=== PATIENT | male | born 1940 | race Caucasian/White ===

== ENCOUNTER 2021-10-16 14:14 | Outpatient (CLI) | payer MEDICARE, BC, SELFPAY ==
[2021-10-16 14:31] LABS: Chloride* 102 mmol/L (96-114)
[2021-10-16 14:32] LABS: Albumin* 3.9 g/dL (3.3-5.0)
[2021-10-16 14:33] LABS: Potassium* 4.2 mmol/L (3.6-5.1); Sodium* 138 mmol/L (135-149)
[2021-10-16 14:35] LABS: Alanine Aminotransferase* 20 U/L (4-50); Alkaline Phosphatase* 76 U/L (40-150); Aspartate Amino Transferase* 30 U/L (12-35); Bilirubin Total* 0.6 mg/dL (0.1-1.5); Blood Urea Nitrogen* 23 mg/dL (7-30); Carbon Dioxide* 30 mmol/L (20-32); Cholesterol* 141 mg/dL (90-199); Creatinine* 0.8 mg/dL (0.5-1.5); Estimated Glomerular Filt Rate 89 ml/min; Glucose* 107 mg/dL (60-115); Total Protein* 7.2 g/dL (6.0-8.3); Triglycerides* 65 mg/dL (40-149)
[2021-10-16 14:36] LABS: Calcium* 9.1 mg/dL (8.4-10.6); HDL Cholesterol* 53 mg/dL (>=40); LDL Cholesterol Calculated 75 mg/dL (<100)
[2021-10-16 14:59] LABS: PSA Screen* 5.98 ng/mL (0.10-4.00)
== END 2021-10-16 14:15 | disposition home or self-care (01) ==
PROVIDERS: PCP Family Medicine; Visit Provider Family Medicine
DX: Z00.00 Encounter for general adult medical examination without abnormal findings (principal); I71.4 Abdominal aortic aneurysm, without rupture; C61 Malignant neoplasm of prostate; E78.5 Hyperlipidemia, unspecified; F32.9 Major depressive disorder, single episode, unspecified; G47.00 Insomnia, unspecified
CPT/HCPCS: 80053; 80061; 84153

== ENCOUNTER 2022-01-31 11:38 | Emergency (ER) | payer MEDICARE, BC, SELFPAY ==
[2022-01-31 11:50] VITALS: BP 137/77; PULSE 86; RESP 18; TEMP 36.7; O2SAT 100; O2SAT 97; BMI 25.1
--- NOTE | 2022-01-31 11:50 | CRLHL7_ITS ---
For Patients: As a result of the Century Cures Act, medical imaging exams and procedure reports are released immediately into your electronic medical record. You may view this report before your referring provider. If you have questions, please contact your health care provider. INDICATION: Fall. TECHNIQUE: Head CT without contrast. Coronal and sagittal reformats were generated. COMPARISON: None. FINDINGS: CSF spaces: Within normal limits for age. Brain parenchyma and extra-axial spaces: Nonspecific low attenuation white matter changes consistent with chronic microvascular disease. No sign of mass, hemorrhage, or midline shift. Skull base and calvarium: The visualized paranasal sinuses and mastoid air cells demonstrate no acute or significant findings. The visualized orbits are grossly unremarkable. No skull fractures. IMPRESSION: No acute or significant findings. Please note that all CT scans at this facility use dose modulation, iterative reconstruction, and/or weight-based dosing when appropriate to reduce radiation dose to as low as reasonably achievable. Dictated by Venancio Ureña MD @ 01/31/2022 12:52:14 PM (Electronically Signed)
--- NOTE | 2022-01-31 11:50 | CRLHL7_ITS ---
For Patients: As a result of the Century Cures Act, medical imaging exams and procedure reports are released immediately into your electronic medical record. You may view this report before your referring provider. If you have questions, please contact your health care provider. INDICATION: Fall. TECHNIQUE: CT cervical spine without contrast. Coronal and sagittal reformats were generated. COMPARISON: None. FINDINGS: Vertebrae: The C7 vertebral body is incompletely included in the field of view. No fractures or suspicious bony lesions. Discs and facet joints: Multilevel degenerative changes in the form of disc space narrowing, subchondral sclerosis, and marginal osteophyte formation. 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 Extraspinal findings: Prevertebral soft and visualized airway are unremarkable. IMPRESSION: No acute abnormality in the visualized cervical spine. Multilevel degenerative changes. Please note that all CT scans at this facility use dose modulation, iterative reconstruction, and/or weight-based dosing when appropriate to reduce radiation dose to as low as reasonably achievable. Dictated by Venancio Ureña MD @ 01/31/2022 12:43:17 PM (Electronically Signed)
--- NOTE | 2022-01-31 11:50 | CRLHL7_ITS ---
For Patients: As a result of the Cures Act, medical imaging exams and procedure reports are released immediately into your electronic medical record. You may view this report before your referring provider. If you have questions, please contact your health care provider. INDICATION: Fall. TECHNIQUE: CT maxillofacial without contrast. Coronal and sagittal reformats were generated. COMPARISON: None. FINDINGS: Facial bones: No fractures or bone lesions. Specifically the nasal bones, temporomandibular joints, maxilla and mandible appear intact. Orbits and globes: Unremarkable. Globes are intact. No sign of intraorbital hemorrhage or emphysema. Sinuses: Mild mucosal thickening of the maxillary sinuses. The other sinuses are clear. Soft tissues: Unremarkable. IMPRESSION: Negative facial CT. No sign of acute injury. Please note that all CT scans at this facility use dose modulation, iterative reconstruction, and/or weight-based dosing when appropriate to reduce radiation dose to as low as reasonably achievable. Dictated by Venancio Ureña MD @ 01/31/2022 12:48:07 PM (Electronically Signed)
--- NOTE | 2022-01-31 11:53 | CRLHL7_ITS ---
For Patients: As a result of the Century Cures Act, medical imaging exams and procedure reports are released immediately into your electronic medical record. You may view this report before your referring provider. If you have questions, please contact your health care provider. Indication: Fall Comparison: Two views right knee November 26, 2018 Technique: Standing AP, lateral, and sunrise views of the bilateral knee were obtained Findings: There is no displaced fracture, dislocation, or hardware failure. There are bilateral total knee arthroplasties without obvious periprosthetic fracture. Scattered periarticular ossification is appreciated. There is minimal left suprapatellar joint effusion. 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 Minimal left suprapatellar joint effusion. Dictated by Rogers Iqbal MD @ 01/31/2022 1:03:59 PM (Electronically Signed)
--- NOTE | 2022-01-31 11:53 | CRLHL7_ITS ---
For Patients: As a result of the Century Cures Act, medical imaging exams and procedure reports are released immediately into your electronic medical record. You may view this report before your referring provider. If you have questions, please contact your health care provider. Indication: Fall Comparison: None available. Technique: AP internal, external rotation, and scapular-Y views of the right shoulder were obtained Findings: There is no displaced fracture or dislocation. Degenerative changes of the acromioclavicular and glenohumeral joints are appreciated with marginal osteophyte formation. There is a mildly high-riding appearance of the humeral head. The soft tissues are unremarkable. Impression: Moderate degenerative changes of the shoulder without acute osseous abnormality. Somewhat high-riding appearance of the humeral head which can be seen in the setting of rotator cuff pathology. Dictated by Rogers Iqbal MD @ 01/31/2022 1:05:15 PM (Electronically Signed)
--- NOTE | 2022-01-31 11:54 | CRLHL7_ITS ---
For Patients: As a result of the Century Cures Act, medical imaging exams and procedure reports are released immediately into your electronic medical record. You may view this report before your referring provider. If you have questions, please contact your health care provider. Indication: Trauma. Technique: Left foot 3 views. Comparison: None. Findings: The bones are osteopenic. 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 No evidence fracture or dislocation. No significant soft tissue swelling. Impression: No evidence of fracture. 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 Dictated by Everette Colin MD @ 01/31/2022 1:20:22 PM (Electronically Signed)
[2022-01-31 11:55] VITALS: O2SAT 100
--- NOTE | 2022-01-31 11:55 | CRLHL7_ITS ---
For Patients: As a result of the Cures Act, medical imaging exams and procedure reports are released immediately into your electronic medical record. You may view this report before your referring provider. If you have questions, please contact your health care provider. INDICATION: Weakness. TECHNIQUE: Chest 2 views. COMPARISON: None. FINDINGS: Lungs: Diffuse interstitial opacities, with patchy ground-glass opacities in the right midlung. Pleura: No pleural effusion or pneumothorax. Heart and Mediastinum: The cardiomediastinal silhouette is normal. The vessels are unremarkable. Bones: Unremarkable. IMPRESSION: Interstitial opacities could indicate chronic changes, viral infection, or atypical infection. Dictated by Venancio Ureña MD @ 01/31/2022 1:05:08 PM (Electronically Signed)
[2022-01-31 12:00] VITALS: BP 136/75
[2022-01-31 13:02] LABS: Lactate* 1.6 mmol/L (0.5-1.9)
[2022-01-31 13:13] LABS: Basophils Percent Auto 0.1 % (0.0-3.0); Hematocrit 44.3 % (37.0-53.0); Hemoglobin* 14.4 gm/dL (13.5-17.5); Immature Granulocytes Pct Auto 0.8 %; Lymphocytes Percent Auto 2.3 % (20-44); Mean Corpuscular HGB Conc 33 gm/dL (32-36); Mean Corpuscular Hemoglobin 32 pg (26-34); Mean Corpuscular Volume 99 fL (80-100); Monocytes Percent Auto 5.5 % (0.0-11.0); Neutrophils Percent Auto 91.3 % (42.0-72.0); Platelet Count* 234 K/uL (140-440); Red Blood Count 4.47 m/uL (4.30-5.90)
--- NOTE | 2022-01-31 13:15 | ED.GENADULT ---
HPI - General Adult General Chief complaint: Fall/Minor Trauma Stated complaint: Fell Time Seen by Provider: 01/31/22 11:40 Source: patient Mode of arrival: ambulatory Limitations: no limitations History of Present Illness HPI narrative: 81-year-old male coming in today after being found face down on the ground at home per his . Patient lives at home with his , he states that he has been working on installing carpet yesterday and today. This morning she found him on the ground face down with blood smears over the carpet. He was awake and alert but unable to get up without assistance. She called EMS. He is complaining of pain of his right shoulder. Denies headache. States that he cannot remember how he got to the ground or what he hit on the way down. Unsure if he lost consciousness or not. Does not remember when he fell. Denies a headache. He denies ever having chest pain or shortness of breath. Unclear how long he was down for, is not sure of this either. Per his , he walks independently. Denies any recent illness. He states that he has not been coughing or complaining of anything. He has had normal appetite. No diarrhea. Related Data Previous Rx's Medication Instructions Recorded fluoxetine 40 mg capsule 40 mg PO QDAY #90 caps 10/18/21 simvastatin 40 mg tablet 40 mg PO QPM #90 tabs 10/18/21 trazodone 50 mg tablet 50 mg PO QDAY #90 tabs 10/18/21 Allergies Allergy/AdvReac Type Severity Reaction Status Date / Time penicillin V Allergy Mild told to Verified 01/31/22 11:55 stay away from, unsure why egg Allergy Verified 01/31/22 15:10 Review of Systems Status of ROS: Reports: 10 or more systems reviewed and unremarkable except as noted in History and below [facility] Medical History Osteopenia Surgical History History of abdominal aortic aneurysm (AAA) repair History of bilateral inguinal hernia repair (09/11/11) History of knee surgery History of tonsillectomy (09/11/11) Status post left knee replacement Status post right knee replacement Family History Mother Cancer Dementia Father Cancer Dementia Social History Narrative: former smoker retired from employment Smoking Status: Never smoker Do you use any of these nicotine containing products: None Second hand tobacco smoke exposure: No How often do you have a drink containing alcohol: never How often do you have six or more drinks on one occasion: Never AUDIT-C Alcohol total score: 0 Non-prescribed substance use: denies use Little interest or pleasure in doing things: not at all Feeling down, depressed, or hopeless: not at all service: No Exam Narrative: Exam Narrative: Thin, elderly patient in no acute distress. Alert and oriented x3. Answers questions appropriately. Mood and affect are appropriate. Thoughts are goal oriented and rational. No tangential or magical thinking noted. Patient speaks in full sentences without needing to catch his breath. GCS is 15. HEENT: Normocephalic. Pupils are equally round reactive to light. Extraocular muscles are intact. Conjunctivae are moist without any icterus noted. Moist mucous membranes. Posterior pharynx is normal. Neck is soft . He has no tenderness to palpation over the cervical spine. No tenderness over the lateral or anterior neck. Patient has bruising across both cheeks and bruising over the chin. He has superficial abrasion over the chin- this looks like a rug burn. Cardiovascular: Heart is regular rate and rhythm S1 and S2 are present without any murmurs. Lungs: Clear to auscultation bilaterally no wheezes rhonchi or rales are appreciated. Patient takes deep breaths without any discomfort. No tenderness to palpation over the anterior lateral or posterior chest wall. There is no bruising to the chest wall. Abdomen: Soft and nontender nondistended with normal bowel sounds. No guarding or rebound. No masses or organomegaly appreciated. No bruising to the abdominal wall. Extremities: Bilateral lower extremities are without edema. Normal DP and PT pulses. He does have abrasions over both knees with bruising present. Again these look like rug charles. He has a similar looking abrasion over the left medial foot with ecchymosis and bleeding. he has a large contusion and abrasion over the right shoulder. He has large ecchymosis over the right wrist. Skin: Well perfused . Back: Has normal appearance. There is no ecchymosis, bruising or erythema noted. He has no tenderness to palpation over the cervical, thoracic or lumbar spine. There is no swelling or step-offs noted. Patient is quite weak and needs assistance to even sit up in bed. Const: Vital Signs, click to edit/add: Vital Signs - 24 hr 01/31/22 11:50 01/31/22 11:55 Temperature 98.1 F Pulse Rate [Left P ulse Oximeter] 86 Respiratory Rate 18 Blood Pressure [Le ft Upper Arm] 137/77 Pulse Oximetry 97 100 Oxygen Delivery Me thod Room Air Course Course Hospital Course: IV was established and labs were drawn. Patient white cell count elevated 16.8, 91.3% neutrophils. His CK was Elevated at 8224. Chemistries are unremarkable. LFTs showed an elevated AST of 301 and elevated ALT at 51. CRP was slightly elevated at 4.8. Initial troponin was markedly elevated at 53.4. Urinalysis had 2+ protein, 3+ blood and only 5-10 RBCs on microscop examination. Use negativ for influenza, COVID and RSV. Repeat troponin was drawn and returned also markedly elevated at 66.3. EKG, read by me, showed normal sinus rhythm with prolonged QT and left ventricular hypertrophy. Given an unwitnessed fall we did proceed with head and cervical spine CT both of which were unremarkable for acute findings. We also did a facial CT which was also unremarkable. We did shoulder, knees and foot x-ray given the side of his injuries and discomfort-over unremarkable for acute pathology. Given his markedly elevated troponins we did proceed with a chest CT which had findings concerning for pneumonia. I did consult with Dr. Gilman, cardiology at [facility] who recommended the patient be transferred to hospital with Cardiology capability for further management. We called every hospital in the [facility] area with this capability and [facility] did have a bed available. Dr. Lion accepting for transfer. While here he had received 2 L of normal saline and Levaquin was started for possibility of pneumonia given his findings on CT scan elevated white cell count. Given that the patient prolonged QT on his EKG we did not use azithromycin and given that the patient is allergic to penicillin Zosyn nor amoxicillin was not used either. Vital Signs Vital signs: Initial Vital Signs Temperature 98.1 F 01/31/22 11:50 Temperature Source Temporal Artery Scan 01/31/22 11:50 Pulse Rate 86 01/31/22 11:50 Respiratory Rate 18 01/31/22 11:50 Blood Pressure 137/77 01/31/22 11:50 Blood Pressure Mean 97 01/31/22 11:50 Blood Pressure Position Semi-Fowlers 01/31/22 11:50 Pulse Oximetry 97 01/31/22 11:50 Oxygen Delivery Method 01/31/22 11:50 Vital Signs Temperature 98.1 F 01/31/22 11:50 Pulse Rate 86 01/31/22 11:50 Respiratory Rate 18 01/31/22 11:50 Blood Pressure 137/77 01/31/22 11:50 Pulse Oximetry 97 01/31/22 11:50 Oxygen Delivery Method 01/31/22 11:50 Temperature 98.1 F 01/31/22 11:50 Pulse Rate 86 01/31/22 11:50 Respiratory Rate 18 01/31/22 11:50 Blood Pressure 137/77 01/31/22 11:50 Pulse Oximetry 100 01/31/22 11:55 Oxygen Delivery Method 01/31/22 11:50 Medical Decision Making MDM Narrative Medical decision making narrative: 81-year-old male status post fall and markedly elevated troponins, rhabdomyolysis, probable pneumonia-patient will be transfered for further management. Lab Data Lab results reviewed: Yes I reviewed the patient's lab results Labs: Lab Results 01/31/22 01/31/22 01/31/22 Range/Units 11:55 12:50 12:50 WBC 16.80 H (4.50-11.00) K/uL RBC 4.47 (4.30-5.90) m/uL Hgb 14.4 (13.5-17.5) gm/dL Hct 44.3 (37.0-53.0) % MCV 99 (80-100) fL MCH 32 (26-34) pg MCHC 33 (32-36) gm/dL RDW Coeff of Lora 13.0 (11.5-15.5) % Plt Count 234 (140-440) K/uL Neut % (Auto) 91.3 H (42.0-72.0) % Lymph % (Auto) 2.3 L (20-44) % [place]verse % (Auto) 5.5 (0.0-11.0) % Eos % (Auto) 0.0 (0.0-7.0) % Baso % (Auto) 0.1 (0.0-3.0) % Neut # (Auto) 15.30 H (1.7-7.0) K/uL Lymph # (Auto) 0.40 L (0.90-2.90) K/uL Traverse # (Auto) 0.90 (0.00-0.90) K/UL Eos # (Auto) 0.00 (0.00-0.50) K/uL Baso # (Auto) 0.00 (0.00-0.30) K/uL Abs Immat Gran (auto) 0.10 (0.00-0.30) K/uL Imm/Tot Granulo (auto) 0.8 % ESR 37 H (2-15) mm/hr Sodium (135-149) mmol/L Potassium (3.6-5.1) mmol/L Chloride (96-114) mmol/L Carbon Dioxide (20-32) mmol/L BUN (7-30) mg/dL Creatinine (0.5-1.5) mg/dL Estimated Creat Clear Estimated GFR ml/min Glucose (60-115) mg/dL Lactate (0.5-1.9) mmol/L Calcium (8.4-10.6) mg/dL Total Bilirubin (0.1-1.5) mg/dL Direct Bilirubin (0.0-0.5) mg/dL AST (12-35) U/L ALT (4-50) U/L Alkaline Phosphatase (40-150) U/L Total Creatine Kinase (54-186) U/L Troponin I (0.01-0.04) ng/mL C-Reactive Protein (0.5-1.0) mg/dL Total Protein (6.0-8.3) g/dL Albumin (3.3-5.0) g/dL Urine Color (Yellow) Urine Appearance (Clear) Urine pH (5.0-8.5) Ur Specific [place] (1.000-1.030) Urine Protein (Negative) Urine Glucose (UA) (Negative) Urine Ketones (Negative) Urine Blood (Negative) Urine Nitrite (Negative) Urine Bilirubin (Negative) Urine Urobilinogen (0.2-1.0) Ur Leukocyte Esterase (Negative) Urine RBC (0-2) Urine WBC (0-5) Ur Squamous Epith Cells (None-Few) Urine Bacteria (None) Fine Granular Casts (None) SARS-CoV-2 (PCR) Negative SARS-CoV-2 (Negative) Influenza Type A (PCR) Negative PCR FLU A (Negative) Influenza Type B (PCR) Negative PCR FLU B (Negative) RSV (PCR) Negative PCR RSV (Negative) 01/31/22 01/31/22 01/31/22 Range/Units 12:50 12:50 14:26 WBC (4.50-11.00) K/uL RBC (4.30-5.90) m/uL Hgb (13.5-17.5) gm/dL Hct (37.0-53.0) % MCV (80-100) fL MCH (26-34) pg MCHC (32-36) gm/dL RDW Coeff of Lora (11.5-15.5) % Plt Count (140-440) K/uL Neut % (Auto) (42.0-72.0) % Lymph % (Auto) (20-44) % Traverse % (Auto) (0.0-11.0) % Eos % (Auto) (0.0-7.0) % Baso % (Auto) (0.0-3.0) % Neut # (Auto) (1.7-7.0) K/uL Lymph # (Auto) (0.90-2.90) K/uL Traverse # (Auto) (0.00-0.90) K/UL Eos # (Auto) (0.00-0.50) K/uL Baso # (Auto) (0.00-0.30) K/uL Abs Immat Gran (auto) (0.00-0.30) K/uL Imm/Tot Granulo (auto) % ESR (2-15) mm/hr Sodium 141 (135-149) mmol/L Potassium 4.2 (3.6-5.1) mmol/L Chloride 107 (96-114) mmol/L Carbon Dioxide 27 (20-32) mmol/L BUN 25 (7-30) mg/dL Creatinine 0.8 (0.5-1.5) mg/dL Estimated Creat Clear 66.58 Estimated GFR 89 ml/min Glucose 113 (60-115) mg/dL Lactate 1.6 (0.5-1.9) mmol/L Calcium 8.8 (8.4-10.6) mg/dL Total Bilirubin 1.0 (0.1-1.5) mg/dL Direct Bilirubin 0.2 (0.0-0.5) mg/dL AST 301 H (12-35) U/L ALT 51 H (4-50) U/L Alkaline Phosphatase 73 (40-150) U/L Total Creatine Kinase 8224 H (54-186) U/L Troponin I 53.40 H* 66.30 H* (0.01-0.04) ng/mL C-Reactive Protein 4.8 H (0.5-1.0) mg/dL Total Protein 7.6 (6.0-8.3) g/dL Albumin 4.1 (3.3-5.0) g/dL Urine Color (Yellow) Urine Appearance (Clear) Urine pH (5.0-8.5) Ur Specific [place] (1.000-1.030) Urine Protein (Negative) Urine Glucose (UA) (Negative) Urine Ketones (Negative) Urine Blood (Negative) Urine Nitrite (Negative) Urine Bilirubin (Negative) Urine Urobilinogen (0.2-1.0) Ur Leukocyte Esterase (Negative) Urine RBC (0-2) Urine WBC (0-5) Ur Squamous Epith Cells (None-Few) Urine Bacteria (None) Fine Granular Casts (None) SARS-CoV-2 (PCR) (Negative) Influenza Type A (PCR) (Negative) Influenza Type B (PCR) (Negative) RSV (PCR) (Negative) 01/31/22 Range/Units 14:28 WBC (4.50-11.00) K/uL RBC (4.30-5.90) m/uL Hgb (13.5-17.5) gm/dL Hct (37.0-53.0) % MCV (80-100) fL MCH (26-34) pg MCHC (32-36) gm/dL RDW Coeff of Lora (11.5-15.5) % Plt Count (140-440) K/uL Neut % (Auto) (42.0-72.0) % Lymph % (Auto) (20-44) % [place]verse % (Auto) (0.0-11.0) % Eos % (Auto) (0.0-7.0) % Baso % (Auto) (0.0-3.0) % Neut # (Auto) (1.7-7.0) K/uL Lymph # (Auto) (0.90-2.90) K/uL [place] # (Auto) (0.00-0.90) K/UL Eos # (Auto) (0.00-0.50) K/uL Baso # (Auto) (0.00-0.30) K/uL Abs Immat Gran (auto) (0.00-0.30) K/uL Imm/Tot Granulo (auto) % ESR (2-15) mm/hr Sodium (135-149) mmol/L Potassium (3.6-5.1) mmol/L Chloride (96-114) mmol/L Carbon Dioxide (20-32) mmol/L BUN (7-30) mg/dL Creatinine (0.5-1.5) mg/dL Estimated Creat Clear Estimated GFR ml/min Glucose (60-115) mg/dL Lactate (0.5-1.9) mmol/L Calcium (8.4-10.6) mg/dL Total Bilirubin (0.1-1.5) mg/dL Direct Bilirubin (0.0-0.5) mg/dL AST (12-35) U/L ALT (4-50) U/L Alkaline Phosphatase (40-150) U/L Total Creatine Kinase (54-186) U/L Troponin I (0.01-0.04) ng/mL C-Reactive Protein (0.5-1.0) mg/dL Total Protein (6.0-8.3) g/dL Albumin (3.3-5.0) g/dL Urine Color Yellow (Yellow) Urine Appearance Cloudy A (Clear) Urine pH 7.5 (5.0-8.5) Ur Specific [place] 1.025 (1.000-1.030) Urine Protein 2+ A (Negative) Urine Glucose (UA) Negative (Negative) Urine Ketones 1+ A (Negative) Urine Blood 3+ A (Negative) Urine Nitrite Negative (Negative) Urine Bilirubin 1+ A (Negative) Urine Urobilinogen 1.0 (0.2-1.0) Ur Leukocyte Esterase Negative (Negative) Urine RBC 5-10 A (0-2) Urine WBC 2-5 (0-5) Ur Squamous Epith Cells Few (None-Few) Urine Bacteria None (None) Fine Granular Casts Few A (None) SARS-CoV-2 (PCR) (Negative) Influenza Type A (PCR) (Negative) Influenza Type B (PCR) (Negative) RSV (PCR) (Negative) Imaging Data CT scan - head: Attestation: I have reviewed the pertinent imaging results. Radiologist's impression: Head CT without contrast. Coronal and sagittal reformats were generated. COMPARISON: None. FINDINGS: CSF spaces: Within normal limits for age. Brain parenchyma and extra-axial spaces: Nonspecific low attenuation white matter changes consistent with chronic microvascular disease. No sign of mass, hemorrhage, or midline shift. Skull base and calvarium: The visualized paranasal sinuses and mastoid air cells demonstrate no acute or significant findings. The visualized orbits are grossly unremarkable. No skull fractures. IMPRESSION: No acute or significant findings. CT cervical spine: Attestation: I have reviewed the pertinent imaging results. Radiologist's impression: CT cervical spine without contrast. Coronal and sagittal reformats were generated. COMPARISON: None. FINDINGS: Vertebrae: The C7 vertebral body is incompletely included in the field of view. No fractures or suspicious bony lesions. Discs and facet joints: Multilevel degenerative changes in the form of disc space narrowing, subchondral sclerosis, and marginal osteophyte formation. 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 Extraspinal findings: Prevertebral soft and visualized airway are unremarkable. IMPRESSION: No acute abnormality in the visualized cervical spine. Multilevel degenerative changes. CT facial bones: Attestation: I have reviewed the pertinent imaging results. Radiologist's impression: CT maxillofacial without contrast. Coronal and sagittal reformats were generated. COMPARISON: None. FINDINGS: Facial bones: No fractures or bone lesions. Specifically the nasal bones, temporomandibular joints, maxilla and mandible appear intact. Orbits and globes: Unremarkable. Globes are intact. No sign of intraorbital hemorrhage or emphysema. Sinuses: Mild mucosal thickening of the maxillary sinuses. The other sinuses are clear. Soft tissues: Unremarkable. IMPRESSION: Negative facial CT. No sign of acute injury. X-ray shoulder: Attestation: I have reviewed the pertinent imaging results. Radiologist's impression: AP internal, external rotation, and scapular-Y views of the right shoulder were obtained Findings: There is no displaced fracture or dislocation. Degenerative changes of the acromioclavicular and glenohumeral joints are appreciated with marginal osteophyte formation. There is a mildly high-riding appearance of the humeral head. The soft tissues are unremarkable. Impression: Moderate degenerative changes of the shoulder without acute osseous abnormality. Somewhat high-riding appearance of the humeral head which can be seen in the setting of rotator cuff pathology. X-ray knees: Attestation: I have reviewed the pertinent imaging results. Radiologist's impression: Standing AP, lateral, and sunrise views of the bilateral knee were obtained Findings: There is no displaced fracture, dislocation, or hardware failure. There are bilateral total knee arthroplasties without obvious periprosthetic fracture. Scattered periarticular ossification is appreciated. There is minimal left suprapatellar joint effusion. 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 Minimal left suprapatellar joint effusion. X-ray foot: Attestation: I have reviewed the pertinent imaging results. Radiologist's impression: Left foot 3 views. Comparison: None. Findings: The bones are osteopenic. 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 No evidence fracture or dislocation. No significant soft tissue swelling. Impression: No evidence of fracture. 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 CT chest: Attestation: I have reviewed the pertinent imaging results. Radiologist's impression: CT chest without contrast. COMPARISON: None. FINDINGS: Lungs and pleura: Upper lobe predominant moderate centrilobular emphysematous changes. There is scarring in the bilateral upper lobes, worse on the right than the left. Thick linear slightly nodular density in the right upper lobe along the peripheral margin (2/34), may represent scarring, atelectasis or infection/inflammation. Linear scarring in the periphery of the right lower lobe.. Centrilobular nodular airspace opacities in the left lower lobe (2/83). Small left-sided pleural effusion with adjacent mild compressive atelectasis. Heart and vasculature: Heart size is normal. Thoracic aorta is normal in caliber. Enlarged pulmonary arteries, which can be seen in setting of pulmonary hypertension. Coronary artery calcifications and/or stents. Lymph nodes/mediastinum: No mediastinal, hilar, or axillary adenopathy. Chest wall: No masses. Upper abdomen: No significant findings. Vascular stent noted in the abdominal aorta. Breathing motion artifact mildly limits evaluation. Bones: Multilevel degenerative changes in the spine. Flowing anterior osteophytes consistent with DISH. Diffuse demineralization of the visualized bones. Increased kyphosis of the thoracic spine. IMPRESSION: Upper lobe predominant moderate centrilobular emphysematous changes. Biapical scarring. In the right upper lobe, there is an area of increased linear/nodular thickening which likely represents scarring however underlying nodule not entirely excluded. Additional area of likely nodular scarring in the right lower lobe. Recommend repeat evaluation in 3 months to ensure stability. Left lower lobe centrilobular nodular densities. Adjacent small left pleural effusion. The constellation of findings are concerning for pneumonia. Coronary artery calcifications. ECG Data Attestation: I personally reviewed and interpreted this ECG as follows: (Normal sinus rhythm, pulse 82, prolonged QT) Discharge Plan Discharge Clinical Impression: Rhabdomyolysis, Elevated troponin Patient Disposition: Xfer Other Discharge Location: [facility] Condition: Stable Prescriptions: No Action fluoxetine 40 mg capsule 40 mg PO QDAY Qty: 90 4RF simvastatin 40 mg tablet 40 mg PO QPM Qty: 90 4RF trazodone 50 mg tablet 50 mg PO QDAY Qty: 90 4RF Stand Alone Forms: [employer] Info Instructions
[2022-01-31 13:17] LABS: Slide Review Reflex No
[2022-01-31 13:20] LABS: Albumin* 4.1 g/dL (3.3-5.0); Chloride* 107 mmol/L (96-114); Sodium* 141 mmol/L (135-149)
[2022-01-31 13:21] LABS: Potassium* 4.2 mmol/L (3.6-5.1)
[2022-01-31 13:22] LABS: Creatinine* 0.8 mg/dL (0.5-1.5); Est. Creatinine Clearance* 66.58; Estimated Glomerular Filt Rate 89 ml/min
[2022-01-31 13:23] LABS: Alkaline Phosphatase* 73 U/L (40-150); Aspartate Amino Transferase* 301 U/L (12-35); Bilirubin Direct* 0.2 mg/dL (0.0-0.5); Blood Urea Nitrogen* 25 mg/dL (7-30); Carbon Dioxide* 27 mmol/L (20-32); Total Protein* 7.6 g/dL (6.0-8.3)
[2022-01-31 13:24] LABS: Alanine Aminotransferase* 51 U/L (4-50); Calcium* 8.8 mg/dL (8.4-10.6); Glucose* 113 mg/dL (60-115)
[2022-01-31 13:26] LABS: C Reactive Protein* 4.8 mg/dL (0.5-1.0)
[2022-01-31 13:36] LABS: PCR FLU A Negative PCR FLU A (Negative); PCR FLU B Negative PCR FLU B (Negative); PCR RSV Negative PCR RSV (Negative)
--- NOTE | 2022-01-31 13:47 | ED.NURSE ---
Dr Field updated on troponin levels. Would like blood redrawn and tested again. Lab notified
[2022-01-31 13:58] LABS: SARS PCR* Negative SARS-CoV-2 (Negative)
[2022-01-31 13:59] LABS: Erythrocyte SedimentationRate* 37 mm/hr (2-15)
[2022-01-31 14:51] LABS: Appearance Urine Cloudy (Clear); Bilirubin Urine 1+ (Negative); Blood Urine 3+ (Negative); Color Urine Yellow (Yellow); Glucose Urine Negative (Negative); Ketones Urine 1+ (Negative); Leukocyte Esterase Urine Negative (Negative); Nitrite Urine Negative (Negative); Protein Urine 2+ (Negative); Specific Gravity Urine 1.025 (1.000-1.030); pH Urine 7.5 (5.0-8.5)
[2022-01-31 14:57] LABS: Fine Granular Casts Urine Few; Squamous Epithelial Cell Urine Few (None-Few)
[2022-01-31 15:24] LABS: Creatine Kinase* 8224 U/L (54-186)
--- NOTE | 2022-01-31 15:55 | CRLHL7_ITS ---
For Patients: As a result of the Century Cures Act, medical imaging exams and procedure reports are released immediately into your electronic medical record. You may view this report before your referring provider. If you have questions, please contact your health care provider. INDICATION: Chest pain. TECHNIQUE: CT chest without contrast. COMPARISON: None. FINDINGS: Lungs and pleura: Upper lobe predominant moderate centrilobular emphysematous changes. There is scarring in the bilateral upper lobes, worse on the right than the left. Thick linear slightly nodular density in the right upper lobe along the peripheral margin (2/34), may represent scarring, atelectasis or infection/inflammation. Linear scarring in the periphery of the right lower lobe.. Centrilobular nodular airspace opacities in the left lower lobe (2/83). Small left-sided pleural effusion with adjacent mild compressive atelectasis. Heart and vasculature: Heart size is normal. Thoracic aorta is normal in caliber. Enlarged pulmonary arteries, which can be seen in setting of pulmonary hypertension. Coronary artery calcifications and/or stents. Lymph nodes/mediastinum: No mediastinal, hilar, or axillary adenopathy. Chest wall: No masses. Upper abdomen: No significant findings. Vascular stent noted in the abdominal aorta. Breathing motion artifact mildly limits evaluation. Bones: Multilevel degenerative changes in the spine. Flowing anterior osteophytes consistent with DISH. Diffuse demineralization of the visualized bones. Increased kyphosis of the thoracic spine. IMPRESSION: Upper lobe predominant moderate centrilobular emphysematous changes. Biapical scarring. In the right upper lobe, there is an area of increased linear/nodular thickening which likely represents scarring however underlying nodule not entirely excluded. Additional area of likely nodular scarring in the right lower lobe. Recommend repeat evaluation in 3 months to ensure stability. Left lower lobe centrilobular nodular densities. Adjacent small left pleural effusion. The constellation of findings are concerning for pneumonia. Coronary artery calcifications. Please note that all CT scans at this facility use dose modulation, iterative reconstruction, and/or weight-based dosing when appropriate to reduce radiation dose to as low as reasonably achievable. Dictated by Stacie Ny MD @ 01/31/2022 5:03:31 PM (Electronically Signed)
[2022-01-31] MEDS: ASPIRIN 81 MG TAB.CHEW 324 MG PO (16:13)
[2022-01-31] MEDS: 0.9 % SODIUM CHLORIDE 1000 ml 1,000 ML IV ×2 (16:13→17:50)
[2022-01-31 17:00] VITALS: BP 103/70
[2022-01-31 17:30] VITALS: BP 137/77
[2022-01-31 18:00] VITALS: BP 60/42
[2022-01-31 18:03] LABS: Thyroid Stimulating Hormone* 0.128 uIU/mL (0.270-4.20)
== END 2022-01-31 19:32 | disposition other institution (70) ==
PROVIDERS: Emergency Provider Family Medicine; PCP Family Medicine
DX: M62.82 Rhabdomyolysis (principal)
CPT/HCPCS: 36415; 70450; 70486; 71046; 71250; 72125; 73030; 73562; 73630; 80048; 80076; 81001; 82550; 83605; 84443; 84484; 85025; 85651; 86140; 87086; 87502; 87634; 87635; 93005; 94761; 96365; 99285; A9270; J1956; J7030

== ENCOUNTER 2022-01-31 19:05 | Outpatient (CLI) | payer MEDICARE, BC, SELFPAY | END 2022-01-31 19:06 | disposition home or self-care (01) | LOC: AMB 02-09 10:07 | PROVIDERS: PCP Family Medicine; Visit Provider Family Medicine | DX: I21.4 Non-ST elevation (NSTEMI) myocardial infarction (principal) | CPT/HCPCS: A0425; A0426 ==

== ENCOUNTER 2022-06-27 21:40 | Outpatient (CLI) | payer MEDICARE, BC, SELFPAY | END 2022-06-27 21:41 | disposition home or self-care (01) | LOC: AMB 06-28 15:02 | PROVIDERS: PCP Family Medicine; Visit Provider Family Medicine | DX: R53.1 Weakness (principal) | CPT/HCPCS: A0425; A0427 ==

== ENCOUNTER 2022-06-27 22:30 | Inpatient (IN) | payer MEDICARE, BC, SELFPAY ==
[2022-06-27 22:58] VITALS: BP 145/79; PULSE 89; RESP 22; TEMP 36.3; O2SAT 95; BMI 21.8
--- NOTE | 2022-06-27 23:19 | CRLHL7_ITS ---
For Patients: As a result of the Cures Act, medical imaging exams and procedure reports are released immediately into your electronic medical record. You may view this report before your referring provider. If you have questions, please contact your health care provider. INDICATION: Fall and hematoma. TECHNIQUE: CT cervical spine without contrast. Permanently recorded images are archived. COMPARISON: Cervical spine CT 01/31/2022. FINDINGS: Vertebrae: Grade 1 anterolisthesis C4 on C5, unchanged. There are no fractures or suspicious bony lesions. Discs and facet joints: There are moderate diffuse degenerative changes in the disc spaces and facet joints. Extraspinal findings: Paraspinous soft tissues are unremarkable. IMPRESSION: 1. No sign of acute injury. 2. Moderate multilevel degenerative spondylosis. 3. No significant interval change compared to the prior exam Please note that all CT scans at this facility use dose modulation, iterative reconstruction, and/or weight-based dosing when appropriate to reduce radiation dose to as low as reasonably achievable. Dictated by Joce Choi MD @ 06/28/2022 12:49:08 AM (Electronically Signed)
--- NOTE | 2022-06-27 23:19 | CRLHL7_ITS ---
For Patients: As a result of the Century Cures Act, medical imaging exams and procedure reports are released immediately into your electronic medical record. You may view this report before your referring provider. If you have questions, please contact your health care provider. INDICATION: Fall and hematoma, head injury, dimension. TECHNIQUE: CT head without contrast. COMPARISON: Head CT 01/31/2022. FINDINGS: CSF spaces: Within normal limits for age. Brain parenchyma and extra-axial spaces: Mild global brain parenchymal volume loss with commensurate sulcal and ventricular enlargement. Mild areas of bilateral periventricular white matter hypoattenuation, consistent with chronic small vessel ischemic disease. The wheeler-white differentiation is normal. No sign of mass, hemorrhage, or midline shift. No extra-axial fluid collection. Skull base and calvarium: Small air-fluid levels within the sphenoid sinuses bilaterally. Trace bilateral maxillary sinus mucosal thickening. The mastoid air cells are clear. The visualized orbits are grossly unremarkable. No skull fractures. Intracranial atherosclerotic disease. IMPRESSION: No evidence of an acute intracranial abnormality. Brain parenchyma findings consistent with chronic small vessel ischemic disease on a background of age-related involutional change. Small air-fluid levels within the bilateral sphenoid sinuses. Recommend correlation for acute sinusitis. Please note that all CT scans at this facility use dose modulation, iterative reconstruction, and/or weight-based dosing when appropriate to reduce radiation dose to as low as reasonably achievable. Dictated by Joce Choi MD @ 06/28/2022 12:45:52 AM (Electronically Signed)
--- NOTE | 2022-06-27 23:19 | CRLHL7_ITS ---
For Patients: As a result of the Century Cures Act, medical imaging exams and procedure reports are released immediately into your electronic medical record. You may view this report before your referring provider. If you have questions, please contact your health care provider. INDICATION: Chest injury from fall, cough, hypoxia TECHNIQUE: Chest radiograph 1 view on 2 films COMPARISON: 1 FINDINGS: Mediastinum: The mediastinum is normal in appearance. The heart silhouette is normal in size and morphology. Lung: There is a spiculated nodule present the right apex measuring 1.5 cm. Mild pleural parenchymal scarring seen in the right apex. No pneumothorax is identified. Bone and Soft tissue: Unremarkable for age. IMPRESSIONS: 1. There is a spiculated nodule present the right apex measuring 1.5 cm. Evaluation with outpatient chest CT is recommended. 2. If there is a high clinical index of suspicion for rib injury, dedicated rib series radiographs are recommended. Dictated by David Linton MD @ 06/28/2022 12:23:28 AM Dictated by: David Linton MD @ 06/28/2022 00:23:33 (Electronically Signed)
[2022-06-27] MEDS: 0.9 % SODIUM CHLORIDE 1000 ml 1,000 ML IV (23:39)
[2022-06-27 23:52] LABS: Lactate* 1.5 mmol/L (0.5-1.9)
[2022-06-27 23:56] LABS: Basophils Percent Auto 0.1 % (0.0-3.0); Hematocrit 44.3 % (37.0-53.0); Hemoglobin* 14.2 gm/dL (13.5-17.5); Immature Granulocytes Pct Auto 1.2 %; Lymphocytes Percent Auto 5.2 % (20-44); Mean Corpuscular HGB Conc 32 gm/dL (32-36); Mean Corpuscular Hemoglobin 32 pg (26-34); Mean Corpuscular Volume 98 fL (80-100); Monocytes Percent Auto 6.6 % (0.0-11.0); Neutrophils Percent Auto 86.9 % (42.0-72.0); Platelet Count* 185 K/uL (140-440); Red Blood Count 4.51 m/uL (4.30-5.90); White Blood Count* 17.16 K/uL (4.50-11.00)
[2022-06-28] VITALS (9 sets, daily range): BP systolic 106–138; BP diastolic 56–87; PULSE 67–85; RESP 12–18; TEMP 36.6–36.9; O2SAT 91–96; BMI 21.4
[2022-06-28] LABS: Slide Review Reflex No
[2022-06-28 00:01] LABS: Troponin, Point-of-Care* 0.16 ng/ml (0.01-0.04)
[2022-06-28 00:10] LABS: Chloride* 108 mmol/L (96-114); Sodium* 142 mmol/L (135-149)
[2022-06-28 00:12] LABS: Creatinine* 0.8 mg/dL (0.5-1.5); Est. Creatinine Clearance* 61.33; Estimated Glomerular Filt Rate 89 ml/min
[2022-06-28 00:13] LABS: Blood Urea Nitrogen* 38 mg/dL (7-30); Carbon Dioxide* 29 mmol/L (20-32); Ethanol* < 0.01 % (0.01-0.03)
[2022-06-28 00:13] LABS: PCR FLU A Negative PCR FLU A (Negative); PCR FLU B Negative PCR FLU B (Negative); PCR RSV Negative PCR RSV (Negative)
[2022-06-28 00:14] LABS: Glucose* 89 mg/dL (60-115)
[2022-06-28 00:16] LABS: SARS PCR* Negative SARS-CoV-2 (Negative)
--- NOTE | 2022-06-28 00:22 | PC.NURSE ---
pt returned from CT, portable chest xray complete. pt continues to have difficulty clearing phlegm, occassionally able to cough up greenish/yellow, thick phlegm. Pt states he felt this has been ongoing for last week. denies fevers or chills or choking. Does admit to increased difficulty swallowing lately. Able to take small sips of water when sitting straight up through straw. Needs encouraging to clear mucous. Oxygen at 4L per oxymask as pt mouth breathing, nasal cannula did not improve oxygen saturations. Pt incontinent of urine and stool. Cares done, pad/chucks on and hover mat in place.
[2022-06-28 00:26] LABS: C Reactive Protein* 17.2 mg/dL (0.5-1.0); NT Pro B Type NatriureticPept* 16600 pg/mL
--- NOTE | 2022-06-28 00:32 | PC.NURSE ---
pts daughter in law-Marybeth #
--- NOTE | 2022-06-28 00:34 | PC.NURSE ---
physician states no cardiac monitoring needed.
[2022-06-28 00:36] LABS: Creatine Kinase* 7091 U/L (54-186)
--- NOTE | 2022-06-28 00:38 | ED_ITS ---
HPI - Fall General Date Seen: 06/28/22 Chief Complaint: Fall/Minor Trauma Stated Complaint: Fall Time Seen by Provider: 06/27/22 22:37 Source: patient, family and EMS Mode of arrival: EMS Limitations: no limitations History of Present Illness HPI Narrative: Patient is an 82-year-old gentleman who suffers from dementia and lives at home, his family called EMS today as he was on the ground since 5:00 a.m. this morning. When I asked him how long these down he says he did no but thinks he fell twice. I asked him why he did call for his and he is not really able to give me an answer for this. He denies any significant pain, but says he just is weak and is not doing well at home. Denies a fevers chills nausea vomiting. Denies a cough chest pain, or anything else. He is here with his atbftmjh-lo-tvi and grandson, his rckmzjti-qf-ngt's is his POA. On review of his chart, he is vehemently DNR DNI, he did have a recent hospitalization within the last 8 months, where they put a stent in his heart itself the, his ikyqjffo-vd-ewv tells me that he was somewhat resistant any care at that point, he is open to care MD bryan complaint: fall Fall from: standing Fall witnessed: no Place fall occurred: home Prolonged down time: yes and hour(s) Symptoms prior to fall: none Severity: moderate Associated symptoms (after fall): denies and unable to walk Related Data Home Medications Medication Instructions Recorded Confirmed aspirin 81 mg tablet,delayed 81 mg PO QDAY 02/08/22 03/01/22 release nitroglycerin 0.4 mg sublingual 0.4 mg sublingual Q5-15M PRN 02/08/22 03/01/22 tablet Previous Rx's Medication Instructions Recorded simvastatin 40 mg tablet 40 mg PO QPM #90 tabs 10/18/21 carvedilol 6.25 mg tablet 6.25 mg PO BID #180 tabs 02/08/22 furosemide 20 mg tablet 20 mg PO QDAY #90 tabs 02/08/22 lisinopril 10 mg tablet 10 mg PO QDAY #90 tabs 02/08/22 trazodone 50 mg tablet 50 mg PO QDAY #90 tabs 02/08/22 clopidogrel 75 mg tablet (Plavix) 75 mg PO QDAY #90 tabs 02/12/22 aripiprazole 2 mg tablet (Abilify) 2 mg PO QDAY #30 tabs 03/19/22 olanzapine 10 mg tablet (Zyprexa) 10 mg PO QPM #90 tabs 04/23/22 fluoxetine 40 mg capsule 40 mg PO QDAY #90 caps 06/12/22 Allergies Allergy/AdvReac Type Severity Reaction Status Date / Time penicillin V Allergy Mild told to Verified 04/23/22 09:48 stay away from, unsure why egg Allergy Verified 04/23/22 09:48 Review of Systems Status of ROS: Reports: 10 or more systems reviewed and unremarkable except as noted in History and below [facility] Medical History Osteopenia Surgical History History of abdominal aortic aneurysm (AAA) repair History of bilateral inguinal hernia repair (09/11/11) History of knee surgery History of tonsillectomy (09/11/11) Status post left knee replacement Status post right knee replacement Family History Mother Cancer Dementia Father Cancer Dementia Social History Narrative: former smoker retired from employment Smoking Status: Never smoker Do you use any of these nicotine containing products: None Second hand tobacco smoke exposure: No How often do you have a drink containing alcohol: never How often do you have six or more drinks on one occasion: Never AUDIT-C Alcohol total score: 0 Non-prescribed substance use: denies use Little interest or pleasure in doing things: several days Feeling down, depressed, or hopeless: several days service: No Exam Narrative: Exam Narrative: Patient is seen in room 6, he is able to talk to me, he is very raspy, and with lots secretions in his throat, or chest. His oxygen saturations are somewhat low. Her seemingly not picking up well. But he seems to vary between approximately 87, and 92. That reason we put him on OxyMask His pupils are equal round reactive to light he has an abrasion on the top of his head. Is not bleeding, negative malave signs, no blood in the external canals, oropharynx is otherwise normal, with some dental work. His pupils are equal round reactive to light with arcus senilis. No midfacial tenderness, his neck as range of motion from approximately 10 cm to approximately 18 cm his lateral flexion is approximately 10? and he is able to turn at approximately 60? bilaterally. Very emaciated, chest is rattly chest, no wheezing, but her some crackles in the bases. No signs of respiratory distress. Heart sounds no clicks murmurs or gallops are noted. Abdomen is soft, no guarding, no organomegaly, wears a diaper, normal male genitalia. No cervical, thoracic, or lumbar tenderness, there is some redness, excoriations over his mid scapula from lying down on the ground for so long. He has some nonsuturable abrasions, skin tears noted on his forearms bilaterally, and right elbow. Extremities are thin bilaterally, but normal distal and proximal strength is noted. Severe on ychogryphosis of his toes. Const: Vital Signs, click to edit/add: Vital Signs - 24 hr 06/27/22 22:58 06/28/22 00:20 Temperature 97.3 F L 98.0 F Pulse Rate [Pulse Oximeter] 89 68 Respiratory Rate 22 18 Blood Pressure [Le ft Upper Arm] 145/79 H 135/87 Pulse Oximetry 95 92 Oxygen Delivery Me thod Room Air OxyMask Oxygen Flow Rate 4 Course Course Hospital Course: Patient is been stable here no complaints of pain or injury, review of his laboratory test shows leukocytosis, elevated CK consistent with mild to moderate rhabdomyolysis from lying on the floor all day. Head CT did not show any acute abnormalities, cervical spine CT no acute abnormalities, there was spiculated lesion of the right upper lung, which is grown since January of 2022. His troponin is also elevated, in the setting of a EKG that shows no acute changes, this may be related to laying on the ground all day with the stress of this. Nevertheless I discussed this with his uscxnhpi-uc-sbo at [facility] , he is vehemently DNR DNI and the family are in agreement with this. Patient does not want any transfers to any other acute Hospital. He was agreeable to be admitted here, and further care like a shelter, as he is unable to care for himself at home. Explained to the daughter in-law that the likely scenario is here is being transferred to a shelter. They were comfortable this, I will speak to the covering hospitalist team, Rober about admission. Vital Signs Vital signs: Initial Vital Signs Temperature 97.3 F L 06/27/22 22:58 Temperature Source Temporal Artery Scan 06/27/22 22:58 Pulse Rate 89 06/27/22 22:58 Respiratory Rate 22 06/27/22 22:58 Blood Pressure 145/79 H 06/27/22 22:58 Blood Pressure Mean 101 06/27/22 22:58 Pulse Oximetry 95 06/27/22 22:58 Oxygen Delivery Method Room Air 06/27/22 22:58 Vital Signs Temperature 97.3 F L 06/27/22 22:58 Pulse Rate 89 06/27/22 22:58 Respiratory Rate 22 06/27/22 22:58 Blood Pressure 145/79 H 06/27/22 22:58 Pulse Oximetry 95 06/27/22 22:58 Oxygen Delivery Method Room Air 06/27/22 22:58 Temperature 98.0 F 06/28/22 00:20 Pulse Rate 68 06/28/22 00:20 Respiratory Rate 18 06/28/22 00:20 Blood Pressure 135/87 06/28/22 00:20 Pulse Oximetry 92 06/28/22 00:20 Oxygen Delivery Method OxyMask 06/28/22 00:20 Oxygen Flow Rate 4 06/28/22 00:20 MDM - Fall MDM Narrative Medical decision making narrative: Life-threatening differential diagnosis considered include stroke, coronary artery disease, pneumonia, and heart failure. Other differential diagnosis include but are not limited to electrolyte imbalances, anemia, medication reactions, and urinary tract infection Medical Records Attestation: I reviewed the patient's medical records. Lab Data Attestation: I reviewed the patient's lab results. Labs: Lab Results 06/27/22 06/27/22 06/27/22 Range/Units 23:27 23:30 23:40 WBC 17.16 H (4.50-11.00) K/uL RBC 4.51 (4.30-5.90) m/uL Hgb 14.2 (13.5-17.5) gm/dL Hct 44.3 (37.0-53.0) % MCV 98 (80-100) fL MCH 32 (26-34) pg MCHC 32 (32-36) gm/dL RDW Coeff of Lora 13.0 (11.5-15.5) % Plt Count 185 (140-440) K/uL Neut % (Auto) 86.9 H (42.0-72.0) % Lymph % (Auto) 5.2 L (20-44) % [place] % (Auto) 6.6 (0.0-11.0) % Eos % (Auto) 0.0 (0.0-7.0) % Baso % (Auto) 0.1 (0.0-3.0) % Neut # (Auto) 14.90 H (1.7-7.0) K/uL Lymph # (Auto) 0.90 (0.90-2.90) K/uL [place] # (Auto) 1.10 H (0.00-0.90) K/UL Eos # (Auto) 0.00 (0.00-0.50) K/uL Baso # (Auto) 0.00 (0.00-0.30) K/uL Sodium 142 (135-149) mmol/L Potassium 4.0 (3.6-5.1) mmol/L Chloride 108 (96-114) mmol/L Carbon Dioxide 29 (20-32) mmol/L BUN 38 H (7-30) mg/dL Creatinine 0.8 (0.5-1.5) mg/dL Estimated Creat Clear 61.33 Estimated GFR 89 ml/min Glucose 89 (60-115) mg/dL Lactate 1.5 (0.5-1.9) mmol/L Calcium 9.0 (8.4-10.6) mg/dL Total Creatine Kinase 7091 H (54-186) U/L C-Reactive Protein 17.2 H (0.5-1.0) mg/dL NT-Pro-B Natriuret Pep 12648 pg/mL Ethyl Alcohol < 0.01 L (0.01-0.03) % SARS-CoV-2 (PCR) Negative SARS-CoV-2 (Negative) Influenza Type A (PCR) Negative PCR FLU A (Negative) Influenza Type B (PCR) Negative PCR FLU B (Negative) RSV (PCR) Negative PCR RSV (Negative) POC Troponin I 0.16 H (0.01-0.04) ng/ml Imaging Data CT scan - head: Radiologist's impression: Patient: ODESSA MONTES Facility:?[facility] Patient ID:?[id number] Site Patient ID:?[id number]. Site :?[id number] Study:?CT Head -06/28/2022 12:19:47 AM Ordering Physician:Steven Alberto Final Report: INDICATION: Fall and hematoma, head injury, dimension. TECHNIQUE: CT head without contrast. COMPARISON: Head CT 01/31/2022. FINDINGS: CSF spaces: Within normal limits for age. Brain parenchyma and extra-axial spaces: Mild global brain parenchymal volume loss with commensurate sulcal and ventricular enlargement. Mild areas of bilateral periventricular white matter hypoattenuation, consistent with chronic small vessel ischemic disease. The wheeler-white differentiation is normal. No sign of mass, hemorrhage, or midline shift. No extra-axial fluid collection. Skull base and calvarium: Small air-fluid levels within the sphenoid sinuses bilaterally. Trace bilateral maxillary sinus mucosal thickening. The mastoid air cells are clear. The visualized orbits are grossly unremarkable. No skull fractures. Intracranial atherosclerotic disease. IMPRESSION: No evidence of an acute intracranial abnormality. Brain parenchyma findings consistent with chronic small vessel ischemic disease on a background of age-related involutional change. Small air-fluid levels within the bilateral sphenoid sinuses. Recommend correlation for acute sinusitis. Please note that all CT scans at this facility use dose modulation, iterative reconstruction, and/or weight-based dosing when appropriate to reduce radiation dose to as low as reasonably achievable. Dictated by Joce Chio MD @ 06/28/2022 12:45:52 AM (Electronic Signature) Patient: ODESSA MONTES Facility:?[facility] Patient ID:?[id number] Site Patient ID:?[id number]. Site :?[id number] Study:?XRay Chest PORTABLE 1V-06/28/2022 12:18:50 AM Ordering Physician:Steven Alberto Final Report: INDICATION: Chest injury from fall, cough, hypoxia TECHNIQUE: Chest radiograph 1 view on 2 films COMPARISON: 1 FINDINGS: Mediastinum: The mediastinum is normal in appearance. The heart silhouette is normal in size and morphology. Lung: There is a spiculated nodule present the right apex measuring 1.5 cm. Mild pleural parenchymal scarring seen in the right apex. No pneumothorax is identified. Bone and Soft tissue: Unremarkable for age. IMPRESSIONS: 1. There is a spiculated nodule present the right apex measuring 1.5 cm. Evaluation with outpatient chest CT is recommended. 2. If there is a high clinical index of suspicion for rib injury, dedicated rib series radiographs are recommended. Dictated by David Linton MD @ 06/28/2022 12:23:28 AM Dictated by: David Linton MD @ 06/28/2022 00:23:33 (Electronic Signature) Patient: ODESSA MONTES Facility:?[facility] Patient ID:?[id number] Site Patient ID:?[id number]. Site :?[id number] Study:?CT Spine Cervical -06/28/2022 12:19:24 AM Ordering Physician:Steven Alberto Final Report: INDICATION: Fall and hematoma. TECHNIQUE: CT cervical spine without contrast. Permanently recorded images are archived. COMPARISON: Cervical spine CT 01/31/2022. FINDINGS: Vertebrae: Grade 1 anterolisthesis C4 on C5, unchanged. There are no fractures or suspicious bony lesions. Discs and facet joints: There are moderate diffuse degenerative changes in the disc spaces and facet joints. Extraspinal findings: Paraspinous soft tissues are unremarkable. IMPRESSION: 1. No sign of acute injury. 2. Moderate multilevel degenerative spondylosis. 3. No significant interval change compared to the prior exam Please note that all CT scans at this facility use dose modulation, iterative reconstruction, and/or weight-based dosing when appropriate to reduce radiation dose to as low as reasonably achievable. Dictated by Joce Choi MD @ 06/28/2022 12:49:08 AM (Electronic Signature) ECG Data Attestation: I personally reviewed and interpreted this ECG as follows: ECG interpretation date: 06/28/22 Prior ECG tracings: available for review Interpretation: EKG shows normal sinus rhythm with sinus arrhythmia, occasional PVCs, left ventricular hypertrophy no acute changes, normal QRS normal QT and normal MO interval. Discharge Plan Discharge Clinical Impression: Elevated troponin I level, Dementia, Leukocytosis, Rhabdomyolysis, Weakness, Lesion of right lung, Fall, Head injury Patient Disposition: Admitted As Inpatient Condition: Improved
--- NOTE | 2022-06-28 00:45 | PC.NURSE ---
pt attempting to urinate for UA.
--- NOTE | 2022-06-28 01:04 | PC.NURSE ---
taking sips of seven up, tolerating well. encouraging deep breathing, coughing to clear mucous.
--- NOTE | 2022-06-28 01:05 | PC.NURSE ---
ekg completed, given to physician. pt unable to void as just went. will try again shortly as pt declines straight cath.
[2022-06-28] MEDS: 0.9 % SODIUM CHLORIDE 1000 ml 1,000 ML 150 ML IV ×4 (01:21→21:12)
--- NOTE | 2022-06-28 03:32 | PM.IMPN1 ---
Subjective Date Seen: 06/28/22 Interval history: Rober Judge Hospitalist eHospitalist was contacted with request of consultation on Alec Cazares. 82-year-old gentleman with advanced dementia, recurrent falls who was brought to the hospital after having multiple falls over the last few days and being unable to ambulate or move after his fall for at least 14-16 hours. At the time of my evaluation, patient was severely demented that he was unable to provide significant history. However when asked about pain, he denied it. No family were present at the time of my evaluation. Home Medications: see EMR Pertinent Medical History: See EMR Pertinent Social History: See EMR Exam (performed via interactive video with assistance of bedside nurse): General: alert, cooperative, no acute distress HEENT: Dry oral mucosa Lungs: clear to auscultation bilaterally without crackle or wheeze CV: regular rate and rhythm without loud murmur rub or gallop Abd: denies tenderness and does not exhibit signs of pain with palpation done by bedside nurse Ext: no pitting edema noted Skin: Multiple bruisings, skin tears all over extremities and torso. Neuro: alert, pleasantly demented, not agitated, moving his extremities Labs and imaging were reviewed. Assessment and Plan: Severe weakness Advanced dementia Recurrent falls/prolonged immobility Rhabdomyolysis Elevated troponin; due to the above We will hydrate Tylenol for pain control According to information provided from ED provider, patient is DNR/DNI I think living situation has to be addressed in the morning as it does not appear he is very safe to go back home. He will need 24/7 care No concern for RI. Troponin elevation is likely in the setting of muscle injury/rhabdo Thank you for including [facility]. This service is available for further assistance as requested by your care team by calling [phone]. Exam Const: Vital Signs, click to edit/add: Vital Signs - 24 hr 06/27/22 22:58 06/28/22 00:20 06/28/22 01:19 Temperature 97.3 F L 98.0 F Pulse Rate [Pulse Oximeter] 89 68 76 Respiratory Rate 22 18 18 Blood Pressure [Le ft Upper Arm] 145/79 H 135/87 106/64 Pulse Oximetry 95 92 93 Oxygen Delivery Me thod Room Air OxyMask OxyMask Oxygen Flow Rate 4 5 Labs Labs: Laboratory Results - last 24 hr 06/27/22 06/27/22 06/27/22 23:27 23:30 23:40 WBC 17.16 H RBC 4.51 Hgb 14.2 Hct 44.3 MCV 98 MCH 32 MCHC 32 RDW Coeff of Lora 13.0 Plt Count 185 Neut % (Auto) 86.9 H Lymph % (Auto) 5.2 L [place] % (Auto) 6.6 Eos % (Auto) 0.0 Baso % (Auto) 0.1 Neut # (Auto) 14.90 H Lymph # (Auto) 0.90 [place] # (Auto) 1.10 H Eos # (Auto) 0.00 Baso # (Auto) 0.00 Sodium 142 Potassium 4.0 Chloride 108 Carbon Dioxide 29 BUN 38 H Creatinine 0.8 Estimated Creat Clear 61.33 Estimated GFR 89 Glucose 89 Lactate 1.5 Calcium 9.0 Total Creatine Kinase 7091 H C-Reactive Protein 17.2 H NT-Pro-B Natriuret Pep 63048 Ethyl Alcohol < 0.01 L SARS-CoV-2 (PCR) Negative SARS-CoV-2 Influenza Type A (PCR) Negative PCR FLU A Influenza Type B (PCR) Negative PCR FLU B RSV (PCR) Negative PCR RSV POC Troponin I 0.16 H
[2022-06-28] MEDS: HALOPERIDOL 5 MG/ML INJ 3 MG IV (06:06)
--- NOTE | 2022-06-28 06:49 | PC.NURSE ---
Pt with hx of dementia admitted due to fall at home. Multiple bruises and skin abrasions on elbows, knees, shins bilaterally, abrasion to right posterior rib cage, slight redness to coccyx that is blanchable. Pt is denying pain, SOB, dizziness, and/or headache. Incontinent of bladder in brief, still attempting to obtain a UA from ED order. Pt is on room air sats remain in low 90's. Pt has only slept approximately 1 hr combine total since arrival to floor @0210. Around 0500 pt began to set off bed alarm to climbing out of bed repeatedly for varied reason. Pt was have a hard time being redirected and became ademit that he was leaving to return home to care for Ileana whom was set to have double hip surgery (at this time ad writer is unaware of this being factual). Christa, body builder contacted Rober Lara for 1 time order of Magaly, see MAR. Pt has settled and is sitting at edge of bed refusing meal, cares, or repositioning. Pt is waiting for family to wake so he can return home.
--- NOTE | 2022-06-28 07:20 | PM.IMHP1 ---
Hospitalist- H&P: HPI History of Present Illness Date Seen: 06/28/22 Chief complaint: Fall Narrative: Alec Cazares is a 82 year old male who presented to the hospital via EMS after a fall at home. It sounds like patient fell at home early in the morning yesterday and was unable to get up; Leno does not remember details of the fall but tells me he fell twice at home and needed help. ER course and findings: - white blood count 17 with PMN predominance - troponin 0.16, BNP 17661 - CK 7000, CRP 17 - incidental spiculated right lung nodule noted on imaging Patient was admitted by E-hospitalist overnight, did require a dose of Haldol overnight for some agitation/paranoia. This morning, patient is pleasant and denies specific concerns for the hospitalist team. Past medical history reviewed; PCP is Dr. Nowak. Per chart review, he has been clear with her and our entire team at the hospital that he is not interested any resuscitative measures or transfer to a higher level of care facility. Review of Systems Status of ROS: Reports: unobtainable due to mental status Narrative: - patient notes intermittent discomfort over skin tears, specifically denies CP - very clear regarding DNR/DNI status PFSH PFSH Medical History Osteopenia Surgical History History of abdominal aortic aneurysm (AAA) repair History of bilateral inguinal hernia repair (09/11/11) History of knee surgery History of tonsillectomy (09/11/11) Status post left knee replacement Status post right knee replacement Family History Mother Cancer Dementia Father Cancer Dementia Social History Narrative: former smoker retired from employment Highest level of school completed/degree received: don't know Smoking Status: Unknown if ever smoked Do you use any of these nicotine containing products: None Second hand tobacco smoke exposure: No How often do you have a drink containing alcohol: never How often do you have six or more drinks on one occasion: Never AUDIT-C Alcohol total score: 0 Non-prescribed substance use: denies use Little interest or pleasure in doing things: several days Feeling down, depressed, or hopeless: several days service: Yes Meds Home Medications and Allergies Home Medications Medication Instructions Recorded Confirmed Type aspirin 81 mg tablet,delayed 81 mg PO QDAY 02/08/22 06/28/22 History release multivitamin with minerals 1 tab PO DAILY 06/28/22 06/28/22 History (Multiple Vitamin-Minerals tablet) olanzapine 10 mg tablet (Zyprexa) 10 mg PO HS 06/28/22 06/28/22 History trazodone 50 mg tablet 100 mg PO HS 06/28/22 06/28/22 History Home Medication Comments: Patient has an extensive medication list, will ask Pharmacy to reconcile. Per last clinic note, it sounds like he is been working on decreasing his pill burden. Allergies Allergy/AdvReac Type Severity Reaction Status Date / Time penicillin V Allergy Mild told to Verified 04/23/22 09:48 stay away from, unsure why egg Allergy Verified 04/23/22 09:48 Exam Narrative: Exam Narrative: GEN: Patient is thin, nontoxic, and sitting on edge of bed. He is pleasant and answers many of my questions appropriately HEENT: EOMIs bilaterally, no scleral icterus CV: RRR, No concerning murmurs R: LCTA bilaterally without concerning wheezing, rales, or rhonchi Back: Thin with protuberant bony processes, large abrasion medial to right scapula Ext: wwp, no concerning edema Skin: Multiple abrasions noted on bilateral upper and lower extremities, all are hemostatic without evidence of acute infection Neuro: Nonfocal Psych: Evidence of short-term memory loss, no agitation or paranoia during my visit Const: Vital Signs, click to edit/add: Vital Signs - 24 hr 06/27/22 22:58 06/28/22 00:20 06/28/22 01:19 Temperature 97.3 F L 98.0 F Pulse Rate [Pulse Oximeter] 89 68 76 Respiratory Rate 22 18 18 Blood Pressure [Le ft Upper Arm] 145/79 H 135/87 106/64 Pulse Oximetry 95 92 93 Oxygen Delivery Me thod Room Air OxyMask OxyMask Oxygen Flow Rate 4 5 06/28/22 02:28 06/28/22 03:45 Temperature 98.1 F Pulse Rate [Pulse Oximeter] Respiratory Rate 16 16 Blood Pressure [Le ft Upper Arm] Pulse Oximetry 91 91 Oxygen Delivery Me thod Room Air Room Air Oxygen Flow Rate Hospitalist - H&P: Result Labs Labs: Short CBC 06/27/22 Range/Units 23:40 WBC 17.16 H (4.50-11.00) K/uL Hgb 14.2 (13.5-17.5) gm/dL Hct 44.3 (37.0-53.0) % Plt Count 185 (140-440) K/uL BMP 06/27/22 23:40 Sodium 142 Potassium 4.0 Chloride 108 Carbon Dioxide 29 BUN 38 H Creatinine 0.8 Glucose 89 Calcium 9.0 Cardiac Enzymes 06/27/22 Range/Units 23:40 Total Creatine Kinase 7091 H (54-186) U/L Assessment and Plan Assessment and plan (1) Rhabdomyolysis: Problem comment: - from fall, continue IVFs, follow CK, renal function, and hepatic function - no pain at this time Status: Acute (2) Fall: Problem comment: - with multiple skin abrasions, cover as tolerated - high fall risk given age and comorbidities, source of fall unclear Status: Acute (3) Lesion of right lung: Problem comment: - incidentally noted on admission imaging; will discuss goals of care with family Status: Acute (4) Weakness: Problem comment: - PT and OT ordered, will likely need SNF upon d/c Status: Acute (5) Elevated troponin I level: Problem comment: - mildly elevated in ED; patient with h/o ACS and NH in 01/2022 - While patient has MCI, he is very clear regarding goals of care: declines any aggressive management of comorbidities or discussion of transfer - continue home medications for CAD (statin, BB, BEL, ASA/Plavix) Status: Acute (6) Leukocytosis: Problem comment: - no acute evidence or symptoms of infection, afebrile. Continue to follow WBC and inflammatory markers Status: Acute Plan - per above - ASA, Plavix, SCDs for ppx - appreciate input from PT/OT/SW regarding dispo planning
[2022-06-28 07:41] LABS: Basophils Percent Auto 0.1 % (0.0-3.0); Hematocrit 43.7 % (37.0-53.0); Immature Granulocytes Pct Auto 0.2 %; Lymphocytes Percent Auto 5.8 % (20-44); Mean Corpuscular HGB Conc 32 gm/dL (32-36); Mean Corpuscular Hemoglobin 32 pg (26-34); Mean Corpuscular Volume 99 fL (80-100); Monocytes Percent Auto 6.6 % (0.0-11.0); Neutrophils Percent Auto 87.3 % (42.0-72.0); Platelet Count* 199 K/uL (140-440); RDW Coefficient of Variation % 13.1 % (11.5-15.5); Red Blood Count 4.42 m/uL (4.30-5.90); White Blood Count* 17.88 K/uL (4.50-11.00)
[2022-06-28 07:42] LABS: Slide Review Reflex No
[2022-06-28 07:54] LABS: Albumin* 3.7 g/dL (3.3-5.0); Chloride* 108 mmol/L (96-114)
[2022-06-28 07:55] LABS: Sodium* 142 mmol/L (135-149)
[2022-06-28 07:57] LABS: Aspartate Amino Transferase* 172 U/L (12-35); Bilirubin Total* 1.2 mg/dL (0.1-1.5); Carbon Dioxide* 23 mmol/L (20-32); Creatinine* 0.8 mg/dL (0.5-1.5); Est. Creatinine Clearance* 60.33; Estimated Glomerular Filt Rate 89 ml/min
[2022-06-28 07:58] LABS: Alanine Aminotransferase* 64 U/L (4-50); Alkaline Phosphatase* 75 U/L (40-150); Blood Urea Nitrogen* 37 mg/dL (7-30); Calcium* 8.2 mg/dL (8.4-10.6); Glucose* 80 mg/dL (60-115); Total Protein* 7.2 g/dL (6.0-8.3)
[2022-06-28 08:40] LABS: Creatine Kinase* 5481 U/L (54-186)
--- NOTE | 2022-06-28 12:16 | PC.NURSE ---
Reviewed Medicare form with Alise via telephone. No further questions asked
--- NOTE | 2022-06-28 14:06 | PC.SOCIAL ---
Discharge planning: Called pt's dtr-in-law, Katalina, who was driving and requested to call social media project manager back with her to discuss discharge plans. social worker delinquency prevention to follow up as needed.
[2022-06-28] MEDS: ASPIRIN 81 MG TABLET EC PO (15:21)
[2022-06-28] MEDS: FLUOXETINE HCL 20 MG CAPSULE 40 MG PO (15:21)
[2022-06-28] MEDS: lisinopriL 10 MG TABLET PO (15:21)
--- NOTE | 2022-06-28 15:21 | PC.SOCIAL ---
Discharge plans: Spoke with son and dtr-in-law regarding discharge plans. Son states he has been trying to convince pt and pt's to move into an assisted living facility. dope worker to provide him with resource list of assisted living facilities for the future. Discussed with son that getting someone admitted to assisted living is a process that typically takes at least a few weeks and that a short term rehab stay at a nursing home facility would be appropriate at discharge. Son is agreeable to this plan. Pt lives in [place] and son lives in [place]. Son requested placement at a facility in the [facility] or [place] area. He states pt will refuse to go to [facility]. Son shared that pt's is scheduled for hip surgery on July 05 and will need a assisted after that surgery. Shared with son that 's surgery would likely not meet criteria for Medicare coverage of a nursing home facility and it would be a private pay sta. Son states that pt's will still need to go to a assisted after hip surgery even if she needs to pay privately for it. Son requested psychotherapist social worker try to find a facility that could accept pt and possibly have a bed available next week for pt's . Son is aware that facilities are likely unable to promise a room for a need next week, but psychotherapist social worker will share the information when looking for nursing home facility placement for this pt. dope worker to follow up as needed.
[2022-06-28] MEDS: FUROSEMIDE 20 MG TABLET PO (15:22)
[2022-06-28] MEDS: CLOPIDOGREL 75 MG TABLET PO (15:22)
--- NOTE | 2022-06-28 16:36 | PC.SOCIAL ---
Discharge planning: Called [facility] and left message requesting call back with bed availability. Called [facility] and spoke with Selina who requested information. Called [facility] and spoke with Danny and faxed requested information. Both [facility] and [facility] state that if accepted, they will probably be able to admit pt and to a shared room. Neither facility has looked at faxed infrormation or made a final decision on admit. Left nursing home facility resource list with facility ratings in room for family and will follow up tomorrow.
[2022-06-28] MEDS: SIMVASTATIN 40 MG TABLET PO (17:31)
[2022-06-28 18:00] LABS: Appearance Urine Clear (Clear); Bilirubin Urine Negative (Negative); Blood Urine Trace-intact (Negative); Color Urine Yellow (Yellow); Glucose Urine Negative (Negative); Ketones Urine Trace (Negative); Leukocyte Esterase Urine Negative (Negative); Nitrite Urine Negative (Negative); Protein Urine Negative (Negative); Specific Gravity Urine 1.025 (1.000-1.030); Urobilinogen Urine 0.2 (0.2-1.0)
--- NOTE | 2022-06-28 18:09 | PC.NURSE ---
Pt pleasantly confused today. Very sleepy today. Worked with PT and OT. SBA w/ walker and gait belt. Denies pain. Mepilex placed to coccyx, right and left knee, and back. tolerating regular diet with setup assist. Pt has been inc. of both urine and stool. Takes pills whole with water.
[2022-06-28 19:05] LABS: Bacteria Urine Few; RBC Urine 0-2 (0-2); Squamous Epithelial Cell Urine Few (None-Few)
[2022-06-28] MEDS: carvediloL 6.25 MG TABLET PO (21:12)
[2022-06-28] MEDS: TRAZODONE HCL 50 MG TABLET 100 MG PO (21:12)
[2022-06-29 03:00] VITALS: BP 127/100; PULSE 78; RESP 14; TEMP 36.3; O2SAT 94
[2022-06-29] MEDS: 0.9 % SODIUM CHLORIDE 1000 ml 1,000 ML 150 ML IV (03:42)
--- NOTE | 2022-06-29 06:52 | PC.NURSE ---
Shift note: Pt rested on the chair throughout the night, no c/o pain. He is incontinent of urine and stool
[2022-06-29 07:33] VITALS: BP 152/71; PULSE 60; RESP 12; TEMP 36.2; O2SAT 94
[2022-06-29 07:40] LABS: Basophils Percent Auto 0.3 % (0.0-3.0); Eosinophils Percent Auto 0.7 % (0.0-7.0); Hematocrit 40.3 % (37.0-53.0); Hemoglobin* 12.8 gm/dL (13.5-17.5); Immature Granulocytes Pct Auto 0.3 %; Lymphocytes Percent Auto 12.2 % (20-44); Mean Corpuscular HGB Conc 32 gm/dL (32-36); Mean Corpuscular Hemoglobin 32 pg (26-34); Mean Corpuscular Volume 101 fL (80-100); Monocytes Percent Auto 8.3 % (0.0-11.0); Neutrophils Percent Auto 78.2 % (42.0-72.0); Platelet Count* 162 K/uL (140-440); RDW Coefficient of Variation % 13.3 % (11.5-15.5); Red Blood Count 4.01 m/uL (4.30-5.90); White Blood Count* 12.69 K/uL (4.50-11.00)
[2022-06-29 07:43] LABS: Slide Review Reflex No
[2022-06-29 07:52] LABS: Chloride* 110 mmol/L (96-114)
[2022-06-29 07:53] LABS: Albumin* 3.3 g/dL (3.3-5.0); Potassium* 3.6 mmol/L (3.6-5.1); Sodium* 141 mmol/L (135-149)
[2022-06-29 07:55] LABS: Creatinine* 0.8 mg/dL (0.5-1.5); Est. Creatinine Clearance* 60.33; Estimated Glomerular Filt Rate 89 ml/min
[2022-06-29 07:56] LABS: Alanine Aminotransferase* 58 U/L (4-50); Alkaline Phosphatase* 66 U/L (40-150); Aspartate Amino Transferase* 99 U/L (12-35); Bilirubin Total* 0.7 mg/dL (0.1-1.5); Blood Urea Nitrogen* 31 mg/dL (7-30); Calcium* 8.2 mg/dL (8.4-10.6); Carbon Dioxide* 26 mmol/L (20-32); Creatine Kinase* 1129 U/L (54-186); Glucose* 78 mg/dL (60-115); Total Protein* 6.5 g/dL (6.0-8.3)
[2022-06-29 08:15] LABS: C Reactive Protein* 14.4 mg/dL (0.5-1.0)
[2022-06-29] MEDS: lisinopriL 10 MG TABLET PO (08:56)
[2022-06-29] MEDS: CLOPIDOGREL 75 MG TABLET PO (08:56)
[2022-06-29] MEDS: ASPIRIN 81 MG TABLET EC PO (08:56)
[2022-06-29] MEDS: FUROSEMIDE 20 MG TABLET PO (08:56)
[2022-06-29] MEDS: FLUOXETINE HCL 20 MG CAPSULE 40 MG PO (08:56)
[2022-06-29] MEDS: carvediloL 6.25 MG TABLET PO (08:56)
--- NOTE | 2022-06-29 10:18 | PC.SOCIAL ---
Discharge plan: REceived call from [facility] stating they do not have an available bed until next week. Received call from [facility] stating they can accept pt today to short term rehab and it will be covered under pt's insurance. Called dtr-in-law who is aware and agrees with this plan. Met with pt who is aware and agrees with this plan. Dtr-in-law, Katalina, is deciding if family will transport or if they want to pay privately for medical transport. She will call back. Facility will accept pt today between 1:00pm and 8:00pm. service worker helper to follow up as needed.
[2022-06-29 10:55] VITALS: BP 139/66; PULSE 69; RESP 14; TEMP 36.1; O2SAT 98
--- NOTE | 2022-06-29 11:07 | PM.DS1 ---
DS: Providers Provider Date Seen: 06/29/22 Date of admission: 06/28/22 10:52 Primary care physician: Mariam Nowak DO Admitting Clinician: Remy Albright MD Consults: OT, PT, SW Attending Physician on discharge: Keshia Douglas MD Date of Discharge: 06/29/22 DS: Diagnosis Discharge Diagnosis (1) Rhabdomyolysis: Status: Acute Problem details: - noted after fall at home with extended down time - patient denied pain, able to ambulate, CK trended downward (2) Fall: Status: Acute Problem details: - with multiple skin abrasions, cover as tolerated - high risk patient given comorbidities - followed by PT and OT and SNF stay recommended (3) Lesion of right lung: Status: Acute Problem details: - incidentally noted on admission imaging; family aware. Likely will not pursue aggressive workup given patient's goals of care (4) Weakness: Status: Acute (5) Elevated troponin I level: Status: Acute Problem details: - mildly elevated in ED; patient with h/o ACS and [place] in 01/2022 - While patient has MCI, he is very clear regarding goals of care: declines any aggressive management of comorbidities or discussion of transfer - continue home medications for CAD (statin, BB, BEL, ASA/Plavix) (6) Leukocytosis: Status: Acute Problem details: - no acute evidence or symptoms of infection, afebrile. - white blood cell count trended downward throughout stay and patient remained afebrile and medically stable DS: Summary Hospital Course Hospital Course: 82-year-old male with history of cognitive impairment, admitted to the hospital after a fall at home and resultant rhabdomyolysis. Patient improved throughout stay and was able to ambulate with the assistance of therapies. He requested no aggressive interventions and denied any chest pain. Comorbidities remained stable. He was medically appropriate for discharge to SNF on 06/29/2022. Status at Discharge Functional status at discharge: uses cane/walker Overall status at discharge: patient is progressing back to baseline Time Spent with Patient Time attestation: Total time spent providing and/or coordinating discharge services: Time spent: Greater than 30 minutes Exam Narrative: Exam Narrative: GEN: Alert and sitting comfortably in bedside chair, eating breakfast HEENT: EOMIs bilaterally, no scleral icterus CV: RRR, No concerning murmurs, rubs, or gallops R: LCTA bilaterally without concerning wheezing, air movement adequate Ext: wwp, no concerning edema Skin: Scattered abrasions on back and extremities, none appear to have evidence of acute infection. All are hemostatic Neuro: No focal deficits Psych: Cognitive impairment is evident, no agitation Const: Vital Signs, click to edit/add: Vital Signs - 24 hr 06/28/22 12:28 06/28/22 15:00 06/28/22 19:53 Temperature 98.3 F 97.8 F 97.8 F Pulse Rate [Pulse Oximeter] 73 67 75 Respiratory Rate 14 12 14 Blood Pressure [Le ft Arm] 138/66 137/68 118/78 Pulse Oximetry 94 95 96 Oxygen Delivery Me thod Room Air Room Air Room Air 06/28/22 23:00 06/28/22 23:00 06/29/22 03:00 Temperature 98 F 97.4 F L Pulse Rate [Pulse Oximeter] 68 74 78 Respiratory Rate 14 14 14 Blood Pressure [Le ft Arm] 127/100 H Pulse Oximetry 94 94 Oxygen Delivery Me thod Room Air Room Air 06/29/22 07:33 06/29/22 10:55 Temperature 97.1 F L 97.0 F L Pulse Rate [Pulse Oximeter] 60 69 Respiratory Rate 12 14 Blood Pressure [Le ft Arm] 152/71 H 139/66 Pulse Oximetry 94 98 Oxygen Delivery Me thod Room Air Room Air DS: Data Data Completed and Pending Labs on day of discharge: Labs from last 24 hours 06/29/22 06/27/22 07:00 13:58 WBC 12.69 H RBC 4.01 L Hgb 12.8 L Hct 40.3 MCV 101 H MCH 32 MCHC 32 RDW Coeff of Lora 13.3 Plt Count 162 Neut % (Auto) 78.2 H Lymph % (Auto) 12.2 L Hernando % (Auto) 8.3 Eos % (Auto) 0.7 Baso % (Auto) 0.3 Neut # (Auto) 9.90 H Lymph # (Auto) 1.50 Hernando # (Auto) 1.10 H Eos # (Auto) 0.10 Baso # (Auto) 0.00 Sodium 141 Potassium 3.6 Chloride 110 Carbon Dioxide 26 BUN 31 H Creatinine 0.8 Estimated Creat Clear 60.33 Estimated GFR 89 Glucose 78 Calcium 8.2 L Total Bilirubin 0.7 AST 99 H ALT 58 H Alkaline Phosphatase 66 Total Creatine Kinase 1129 H C-Reactive Protein 14.4 H Total Protein 6.5 Albumin 3.3 Urine Color Yellow Urine Appearance Clear Urine pH 6.0 Ur Specific [place] 1.025 Urine Protein Negative Urine Glucose (UA) Negative Urine Ketones Trace A Urine Blood Trace-intact A Urine Nitrite Negative Urine Bilirubin Negative Urine Urobilinogen 0.2 Ur Leukocyte Esterase Negative Urine RBC 0-2 Urine WBC 2-5 Ur Squamous Epith Cells Few Urine Bacteria Few A Preliminary micro results at discharge 06/27/22 23:50 Blood Culture - Preliminary Blood NO GROWTH AFTER 24 HOURS 06/27/22 23:40 Blood Culture - Preliminary Blood NO GROWTH AFTER 24 HOURS Discharge Plan Discharge Disposition: Xfer [facility] Date of Admission: 06/28/22 10:52 Attending Provider on Discharge: Keshia Douglas Primary Care Provider: Mariam Nowak Condition: Improved Anticipated Discharge Date/Time: 06/29/22 11:05 Discharge Medications: New olanzapine 5 mg Tablet,Disintegrating 5 mg PO BID PRN (Reason: Agitation) Qty: 60 0RF Rx Instructions: prn agitation Continued simvastatin 40 mg tablet 40 mg PO QPM Qty: 90 4RF aspirin 81 mg tablet,delayed release (DR/EC) 81 mg PO QDAY carvedilol 6.25 mg tablet 6.25 mg PO BID Qty: 180 1RF furosemide 20 mg tablet 20 mg PO QDAY Qty: 90 1RF lisinopril 10 mg tablet 10 mg PO QDAY Qty: 90 1RF Multiple Vitamin-Minerals Tablet 1 tab PO DAILY trazodone 50 mg tablet 100 mg PO HS clopidogrel [Plavix] 75 mg tablet 75 mg PO QDAY Qty: 90 3RF fluoxetine 40 mg capsule 40 mg PO QDAY Qty: 90 0RF Discontinued olanzapine [Zyprexa] 10 mg tablet 10 mg PO HS aripiprazole [Abilify] 2 mg tablet 2 mg PO QDAY Qty: 30 1RF Discharge Orders: Discharge Order (Routine); Ordered 06/29/22 Ordered By: Keshia Douglas Activity Level: Activity as Tolerated Activity Detail: per therapies Discharge Diet: Regular Follow Up Appointments: Mariam Nowak, [Primary Care Provider] - (prn ) Discharge Comments: Xfer to [facility]: please evaluate abrasions daily (back and extremities), cover with mepilex as tolerated. No evidence of infection on 06/29 Admit to: SNF Discharge Potential: Fair Length of Stay: 30-90 days Can use facility standing orders?: Yes Code Status: DNR/DNI Rehab Potential: Fair Therapy: Physical Therapy and Occupational Therapy Therapy Orders: Evaluate and Treat and Gait Training Therapy Orders Additional Information: frequent falls Oxygen: No Urinary Catheter: No Next INR: n/a INR Goal: n/a Orders are good >30 days: Yes Signature: Keshia Douglas MD
--- NOTE | 2022-06-29 12:01 | PC.SOCIAL ---
Discharge plan: Pt's dtr in law, Katalina, called back and requested non-emergency ambulance be arranged for transport to the facility today. SHe is aware this will be private pay with the estimated cost of $190 and agreed by phone to this cost. PAS completed and submitted. [facility] is aware pt will be coming be non-emergency ambulance this afternoon and family will meet him at the facility.
[2022-06-29 12:13] VITALS: BP 139/66; PULSE 69; RESP 14; TEMP 36.1
[2022-06-29 14:44] VITALS: BP 133/65; PULSE 57; RESP 12; TEMP 36.5; O2SAT 98
--- NOTE | 2022-06-29 16:03 | PC.NURSE ---
Pt calm and cooperative during shift. Pt has confusion about where he is. Reoriented to place and time. Pt can answer yes, no questions appropriately along with other questions. Pt uses call light appropriately. Pt assist of one with walker. Pt tolerates activity well. Pt?s fluids were DC?d around 1015am. IV removed catheter intact at 1028am. Pt discharging to [facility] in [place] today at 4?pm via non emergent EMS. Coffee Machine Technician called and spoke with Aminah Silva at [place] to give nurse to nurse report. Coffee Machine Technician called and informed Katalina CHEN of strip picker and to inform that Pt with need clothes. Belongings sent in bags are soiled. Pt sent to SNF with paper scrubs on.?
== END 2022-06-29 15:55 | DRG 558 ==
LOC: ED 06-28 01:04 → MEDSURG 06-28 01:46
PROVIDERS: Family Medicine; Admitting Provider Family Medicine; Emergency Provider Family Medicine; PCP Family Medicine; Visit Provider Family Medicine
DX: M62.82 Rhabdomyolysis (principal); F03.90 Unspecified dementia, unspecified severity, without behavioral disturbance, psychotic disturbance, mood disturbance, and anxiety; R77.8 Other specified abnormalities of plasma proteins; S00.93XA Contusion of unspecified part of head, initial encounter; S50.812A Abrasion of left forearm, initial encounter; S50.811A Abrasion of right forearm, initial encounter; S80.812A Abrasion, left lower leg, initial encounter; S50.311A Abrasion of right elbow, initial encounter; Y92.009 Unspecified place in unspecified non-institutional (private) residence as the place of occurrence of the external cause; W19.XXXA Unspecified fall, initial encounter; Z91.81 History of falling; S80.811A Abrasion, right lower leg, initial encounter; D72.829 Elevated white blood cell count, unspecified; R53.1 Weakness; R91.1 Solitary pulmonary nodule
CPT/HCPCS: 36415; 70450; 71045; 72125; 80048; 80053; 81001; 82077; 82550; 83605; 83880; 84443; 84484; 85025; 86140; 87040; 87086; 87631; 93005; 97110; 97112; 97116; 97161; 97165; 97530; 97535; 99285; A9270; G0378; J1630; J7030

== ENCOUNTER 2022-06-29 15:58 | Outpatient (CLI) | payer MEDICARE, BC, SELFPAY | END 2022-06-29 15:59 | disposition home or self-care (01) | LOC: AMB 07-03 15:30 | PROVIDERS: PCP Family Medicine; Visit Provider Family Medicine | DX: Z99.3 Dependence on wheelchair (principal) | CPT/HCPCS: A0425; A0428 ==